=== PATIENT | female | born 1940 | race Caucasian/White ===

== ENCOUNTER 2019-11-10 09:33 | Outpatient (CLI) | payer MEDICARE, SELFPAY ==
--- NOTE | ~2019-11-10 | MR_ITS ---
EXAMINATION: MR lumbar spine wo/w con DATE: 11/10/2019 11:04 INDICATION: Bilateral lower extremity weakness. Urinary incontinence. TECHNIQUE: Magnetic resonance imaging (MRI) of the lumbar spine was performed without and with 10 mL MultiHance intravenous contrast. Sequences included sagittal T2-weighted FSE, sagittal T2-weighted FS FSE, sagittal T1-weighted FSE, and axial T2-weighted FSE. COMPARISON: CT abdomen and pelvis 06/10/2013 FINDINGS: There is 5 degrees dextrocurvature of thoracolumbar spine. There is 3 mm anterolisthesis of L3 on L4. Vertebral body heights are normal. There is moderately decreased disc height at L3-L4. The distal spinal cord signal intensity is normal. The conus medullaris is at L1. The following disc lev els are specifically discussed: L1-L2: The disc is mildly bulging. There is no facet joint osteoarthritis. There is mild bilateral ne ural foraminal stenosis. There is no central canal stenosis. L2-L3: The disc is bulging and has an annular fissure. There is mild bilateral facet joint osteoarthr itis. There is mild bilateral neural foraminal stenosis. There is mild central canal stenosis. L3-L4: The disc is bulging and has an annular fissure. There is severe right and moderate left facet joint osteoarthritis. There is hypertrophy of the ligamentum flavum. There is moderate right and mild left neural foraminal stenosis. There is mild central canal stenosis. L4-L5: The disc is bulging. There is severe bilateral facet joint osteoarthritis. There is hypertroph y of the ligamentum flavum. There is mild bilateral neural foraminal stenosis. There is mild central canal stenosis. L5-S1: The disc does not extend beyond the endplate margin. There is severe right and moderate left f acet joint osteoarthritis. There is mild bilateral neural foraminal stenosis. There is mild central c anal stenosis. IMPRESSION: 1. Moderate lumbar spondylosis. Reviewed, dictated and finalized at location A.
[2019-11-10 10:22] LABS: Estimated Glomerular Filt Rate > 60
== END 2019-11-10 09:34 | disposition home or self-care (01) ==
PROVIDERS: PCP Family Medicine; Visit Provider Nurse Practitioner Family
DX: R32 Unspecified urinary incontinence (principal); R53.1 Weakness; M47.816 Spondylosis without myelopathy or radiculopathy, lumbar region
CPT/HCPCS: 36415; 72158; A9577

== ENCOUNTER 2019-11-17 21:45 | Emergency (ER) | payer MEDICARE, SELFPAY ==
--- NOTE | ~2019-11-17 | CT_ITS ---
EXAMINATION: CT facial & cervical spine wo DATE: 11/17/2019 22:35 INDICATION: Facial and neck pain after fall TECHNIQUE: Computed tomography (CT) of the maxillofacial region and cervical spine was performed with out intravenous contrast. The dose-length product (DLP) was 161.72 mGy-cm. Automated exposure control and iterative reconstruction technique were employed. COMPARISON: None FINDINGS: MAXILLOFACIAL CT: No facial bone fracture is identified. The facial soft tissues are unremarkable. There is mild mucosa l thickening of the paranasal sinuses. Moderate degenerative changes noted in the temporomandibular j oints. CERVICAL SPINE CT: There is no fracture. There are 2 mm of anterolisthesis of C3 on C4 and 2 mm of retrolisthesis of C5 on C6. There is advanced loss of intervertebral disc space height at C4-5, C5-6, and C6-7. The verteb ral body heights are maintained. The odontoid is intact. There is severe multilevel facet and uncover tebral joint osteoarthritis. The prevertebral soft tissues are normal. IMPRESSION: 1. No facial bone fracture. 2. Severe cervical spondylosis without acute osseous abnormality. Reviewed, dictated and finalized at location A.
--- NOTE | ~2019-11-17 | CT_ITS ---
EXAMINATION: CT brain wo con INDICATION: Head injury COMPARISON: 01/06/2019 TECHNIQUE: Standard unenhanced head CT. The dose-length product (DLP) was 605.33 mGy-cm. The mA was a djusted according to patient size. Iterative reconstruction technique was employed. FINDINGS: There is no acute intraparenchymal hemorrhage. No evidence of mass lesion. No evidence of a cute infarction. There is moderate periventricular and subcortical hypodensity probably related to sm all vessel ischemic disease. There is moderate prominence of the sulci and ventricles related to cere bral atrophy. Intracranial calcified cerebral atherosclerosis is noted. There are no extra-axial oanh ections. There is no mass effect or midline shift. The orbits and soft tissues are unremarkable. The visualized sinuses and mastoid air cells are well aerated. IMPRESSION: 1. No acute intracranial abnormality. 2. Age related findings. Reviewed, dictated and finalized at location A.
[2019-11-17 22:17] VITALS: BP 147/58; PULSE 61; RESP 14; TEMP 36.7; O2SAT 98
--- NOTE | 2019-11-18 00:13 | ED.HEATRA ---
HPI - Head Injury General Chief complaint: Head Injury Stated complaint: Fall, nose/face injury Time Seen by Provider: 11/17/19 23:54 History of Present Illness HPI Narrative: Patient is 79-year-old female who presents ER for evaluation after a fall. Patient had fallen in her apartment at the correction, hit her button to be helped up, the caregiver came in to help her up and she appeared wobbly briefly. Her primary care doctor 1 to rule out a broken nose that she has had bruising and swelling to her nose since fall. She denies any loss of consciousness. She is oriented x2-3 which makes her history limited. She does have a caregiver here who is assisting her. Related Data Home Medications Medication Instructions Recorded Confirmed donepezil 5 mg tablet 5 mg PO ONCE 05/07/19 09/12/19 tuberculin PPD 0.1 ml INTRADERM ONCE 05/07/19 09/12/19 bupropion HCl 75 mg tablet 75 mg PO BID 09/12/19 09/12/19 memantine 5 mg tablet 5 mg PO QAM 09/12/19 09/12/19 Allergies Allergy/AdvReac Type Severity Reaction Status Date / Time sertraline Allergy Intermediate DIARRHEA Verified 05/07/19 14:14 Penicillins Allergy Unknown Unknown Verified 05/07/19 14:14 Review of Systems Review of Systems: All systems reviewed & are unremarkable except as noted in HPI and below Constitutional: Constitutional: Denies fever(s) and Denies weakness ENT: Denies nasal congestion and Denies sore throat Comments: nose pain Genitourinary: Genitourinary: Denies nocturia and Denies dysuria Neurologic: Denies syncope, Denies headache(s), Denies focal weakness and Denies numbness PMF Past Medical History Medical History (Updated 11/18/19 @ 00:17 by Gregory Sellers MD) Anxiety and depression History of tobacco abuse none for the last 4-5 years, 50 pack year history Memory deficit Family History Family History (Updated 12/11/17 @ 13:43 by DOCTOR UNKNOWN) Mother Hypertension Social History Social History (Reviewed 05/07/19 @ 14:02 by Cathi Longoria [facility]) Smoking status: Former smoker Second hand tobacco smoke exposure: No Smoking end date: 05/28/00 Alcohol intake: current Gender identity (if verbalized by the patient): Female Exam Narrative: Exam Narrative: GENERAL: Well-appearing, well-nourished, and in no acute distress. HEAD: Normocephalic, atraumatic. EYES: PERRL and EOMI. ENT: Mucous membranes moist. Contusion over the bridge of the nose with mild tenderness, no epistaxis. NECK: Supple. CHEST: Clear to auscultation. No respiratory distress. HEART: Regular rate and rhythm. No murmur heard. Normal peripheral pulses. EXTREMITIES: Normal range of motion. No edema. NEURO: Alert and oriented x3. Course Course Emergency Course: Patient and nursing admin informed of results. No other evidence of injury. Discharge home. Vital Signs Vital signs: Vital Signs Temperature 98.1 F 11/17/19 22:17 Pulse Rate 61 11/17/19 22:17 Respiratory Rate 14 11/17/19 22:17 Blood Pressure 147/58 H 11/17/19 22:17 Pulse Oximetry 98 11/17/19 22:17 Temperature 98.1 F 11/17/19 22:17 Pulse Rate 61 11/17/19 22:17 Respiratory Rate 14 11/17/19 22:17 Blood Pressure 147/58 H 11/17/19 22:17 Pulse Oximetry 98 11/17/19 22:17 Discharge Plan Discharge Clinical Impression: Contusion of nose Patient Disposition: Home, Self-Care Condition: Stable Instructions: Nasal Contusion (ED) Additional Instructions: Return to the ER if you have chest pain or shortness of breath, cannot keep down food or water, you lose consciousness, have additional concerns. Prescriptions: No Action Tubersol 5 tub. unit /0.1 mL solution 0.1 ml INTRADERM ONCE RF: 0 donepezil 5 mg tablet 5 mg PO ONCE RF: 0 memantine [Namenda] 5 mg tablet 5 mg PO QAM RF: 0 bupropion HCl 75 mg tablet 75 mg PO BID RF: 0 Follow-up/Referrals: Gildardo Kolb MD [Primary Care Provider] - 1 Week
[2019-11-18 00:57] VITALS: BP 160/64; PULSE 60; RESP 17; O2SAT 98
== END 2019-11-18 01:00 ==
PROVIDERS: Emergency Provider Emergency Medicine; PCP Family Medicine
DX: S00.33XA Contusion of nose, initial encounter (principal); F41.8 Other specified anxiety disorders; Z87.891 Personal history of nicotine dependence; W19.XXXA Unspecified fall, initial encounter
CPT/HCPCS: 70450; 70486; 72125; 99284

== ENCOUNTER 2020-06-26 09:03 | Emergency (ER) | payer MEDICARE, SELFPAY ==
--- NOTE | ~2020-06-26 | XR_ITS ---
EXAMINATION: XR wrist RT min 3V DATE: 06/26/2020 09:44 INDICATION: Right wrist fracture post fall one day prior TECHNIQUE: Posteroanterior, ulnar deviation, oblique, and lateral views of the right wrist were obtai cecilia. COMPARISON: none FINDINGS: Nondisplaced intra-articular fracture at the ulnar side of the distal radius. No other fractures iden tified. Polyarticular osteoarthritis, moderate severity at the first interphalangeal joint and mild a t the triscaphe, first carpometacarpal and multiple metacarpophalangeal joints. IMPRESSION: 1. Nondisplaced intra-articular fracture at the ulnar side of the distal right radius. Reviewed, dictated and finalized at location A. CASHIER
[2020-06-26 09:12] VITALS: BP 139/71; PULSE 88; RESP 18; TEMP 36; O2SAT 97
--- NOTE | 2020-06-26 10:08 | ED.UPPEXIN ---
HPI - Extremity Injury (Upper) General Chief Complaint: Extremity Injury, Upper Stated Complaint: Right Wrist Injury, Cast Request Time Seen by Provider: 06/26/20 09:09 Source: patient and family Mode of arrival: ambulatory Limitations: dementia History of Present Illness HPI narrative: Patient is a 80 year old female who presents with daughter for a cast placement on a broken wrist. Her daughter states patient accidentally fell on Sunday night. She landed on her right wrist. She states it is swollen but patient denies having any pain. An outpatient right wrist xray was performed yesterday and it shows that she has a wrist fracture. Patient denies pain. She denies hitting her head or LOC. Patient is here to get a cast. Related Data Home Medications Medication Instructions Recorded Confirmed donepezil 5 mg tablet 5 mg PO ONCE 05/07/19 05/18/20 tuberculin PPD 0.1 ml INTRADERM ONCE 05/07/19 05/18/20 memantine 5 mg tablet 5 mg PO QAM 09/12/19 05/18/20 Lactobacillus acidophilus 1 tablet PO DAILY 03/02/20 05/18/20 calcium polycarbophil 625 mg tablet 1,250 mg PO DAILY 03/02/20 05/18/20 ergocalciferol (vitamin D2) 1,250 1,250 mcg PO WEEKLY 03/02/20 05/18/20 mcg (50,000 unit) capsule fluticasone propionate 50 1 spray NASAL DAILY 03/02/20 05/18/20 mcg/actuation nasal spray,suspension multivitamin 1 tablet PO DAILY 03/02/20 05/18/20 Allergies Allergy/AdvReac Type Severity Reaction Status Date / Time sertraline Allergy Intermediate DIARRHEA Verified 06/26/20 09:20 Penicillins Allergy Unknown Unknown Verified 06/26/20 09:20 Review of Systems Review of Systems: All systems reviewed & are unremarkable except as noted in HPI and below PMFSH Past Medical History Medical History (Updated 06/26/20 @ 11:53 by Sonam Beal MD) Anxiety and depression History of tobacco abuse none for the last 4-5 years, 50 pack year history Memory deficit Family History Family History Mother Hypertension Social History Social History Smoking status: Former smoker Second hand tobacco smoke exposure: No Smoking end date: 05/28/00 Alcohol intake: current Gender identity (if verbalized by the patient): Female Exam Const: General: alert Orientation/consciousness: patient oriented x3 HENMT: Head: normocephalic and atraumatic Eyes: EOM: EOMs intact bilaterally Resp: Effort & Inspection: normal respiratory effort Skin: General skin exam: normal color Rashes: no rashes Neuro: General: patient oriented x3 and moves all extremities Extrem: Other: right wrist with mild swelling, FROM, palpable radial pulse, sensation intact. Psych: Mental Status: mental status grossly normal Affect: normal affect Course Reevaluation(s) Reevaluation #1: Patient has sugar tong in place now so she will be discharged. I discussed follow up with daughter. No further questions. Date: 06/26/20 Time: 11:51 Vital Signs Vital signs: Vital Signs Temperature 96.8 F L 06/26/20 09:12 Pulse Rate 88 06/26/20 09:12 Respiratory Rate 18 06/26/20 09:12 Blood Pressure 139/71 06/26/20 09:12 Pulse Oximetry 97 06/26/20 09:12 Temperature 96.8 F L 06/26/20 09:12 Pulse Rate 64 06/26/20 12:16 Respiratory Rate 20 06/26/20 12:16 Blood Pressure 150/59 H 06/26/20 12:16 Pulse Oximetry 97 06/26/20 12:16 MDM - Extremity Injury (Upper) Imaging Data Radiologist's impression: ITS Impressions Wrist X-Ray 06/26/20 09:45 IMPRESSION: 1. Nondisplaced intra-articular fracture at the ulnar side of the distal right radius. Discharge Plan Discharge Clinical Impression: Closed fracture of distal end of right radius Qualifiers: Encounter type: initial encounter Fracture morphology: unspecified fracture morphology Qualified Code(s): S52.501A - Unspecified fracture of the low
[2020-06-26 12:16] VITALS: BP 150/59; PULSE 64; RESP 20; O2SAT 97
== END 2020-06-26 12:20 ==
PROVIDERS: Emergency Provider General Practice; PCP Physician Assistant
DX: S52.571A Other intraarticular fracture of lower end of right radius, initial encounter for closed fracture (principal); Z87.891 Personal history of nicotine dependence; W19.XXXA Unspecified fall, initial encounter
CPT/HCPCS: 29125; 73110; 99284

== ENCOUNTER 2021-06-16 09:20 | Emergency (ER) | payer MEDICARE, SELFPAY ==
--- NOTE | ~2021-06-16 | CT_ITS ---
EXAMINATION: CT brain wo con EXAM DATE: 06/16/2021 10:03 INDICATION: Trauma. TECHNIQUE: Spiral CT of the head was performed without contrast. Axial, coronal and sagittal images were reviewed. The dose-length product (DLP) for this examination was 681.00 mGy-cm. The exposure w as tailored according to patient size, and iterative reconstruction (ASIR) was used as additional dos e reduction technique. Comparison is made to prior examination from 11/17/2019. FINDINGS: There is no acute intraparenchymal hemorrhage. No evidence of intraparenchymal brain mass lesion. No evidence of acute infarction. Please note that initial head CT has limited sensitivity f or small or acute infarctions. There is mild to moderate periventricular and subcortical hypodensity, nonspecific but probably related to small vessel ischemic disease. There is ventricular prominence out of proportion to sulci which is suspected most likely central atrophy rather than hydrocephalus. Normal pressure hydrocephalus cannot be excluded (clinical triad ataxia/gait disturbance, dementia, urinary incontinence). There is intracranial carotid arteriosclerosis. There are no extra-axial c ollections. There is no mass effect or midline shift. Patient has had bilateral ocular lens surgery . Soft tissue is unremarkable. The visualized sinuses and mastoid air cells are well aerated. IMPRESSION: 1. No acute intracranial findings. 2. Dilated ventricles, probably central atrophy. NPH not excludable. 3. Microangiopathy. Reviewed, dictated and finalized at location B. LADLE TENDER
[2021-06-16 09:22] VITALS: BP 177/90; PULSE 88; RESP 16; TEMP 36.8; O2SAT 100
--- NOTE | 2021-06-16 10:04 | ED.FALL ---
HPI - Fall General Chief Complaint: Fall Stated Complaint: fall Time Seen by Provider: 06/16/21 09:30 Source: patient, EMS and RN notes reviewed Mode of arrival: EMS Limitations: dementia History of Present Illness HPI Narrative: 81-year-old female presenting to the emergency room from a local fdc after having an unwitnessed fall from bed this morning. correction went to go check on the patient and found her lying on the floor. Patient initially reported left hip pain. Upon arrival to the scene by EMS patient was complaining of right hip pain. Upon arrival to the emergency room and patient denies any complaints at this time. Patient does have dementia and is a poor historian. Patient states that she walks daily without any issues. Patient does have contracted legs bilaterally and is nonambulatory per fdc. Related Data Home Medications Medication Instructions Recorded Confirmed donepezil 5 mg tablet 5 mg PO ONCE 05/07/19 07/02/20 memantine 5 mg tablet 5 mg PO QAM 09/12/19 07/02/20 Lactobacillus acidophilus 1 tablet PO DAILY 03/02/20 07/02/20 calcium polycarbophil 625 mg tablet 1,250 mg PO DAILY 03/02/20 07/02/20 ergocalciferol (vitamin D2) 1,250 1,250 mcg PO WEEKLY 03/02/20 07/02/20 mcg (50,000 unit) capsule fluticasone propionate 50 1 spray NASAL DAILY 03/02/20 07/02/20 mcg/actuation nasal spray,suspension multivitamin 1 tablet PO DAILY 03/02/20 07/02/20 Allergies Allergy/AdvReac Type Severity Reaction Status Date / Time sertraline Allergy Intermediate DIARRHEA Verified 07/01/20 10:35 Penicillins Allergy Unknown Unknown Verified 07/01/20 10:35 Review of Systems Review of Systems: Patient denies any complaints. Review of systems is difficult due to her dementia ROS unobtainable: Yes unobtainable due to mental status PMFSH Past Medical History Medical History (Updated 06/16/21 @ 10:30 by Bryson Horne MD) Anxiety and depression COPD (chronic obstructive pulmonary disease) Dementia Depression History of tobacco abuse none for the last 4-5 years, 50 pack year history Hypersomnia Memory deficit Severe sleep apnea Swelling of lymph node Family History Family History Mother Hypertension Social History Social History Smoking status: Former smoker Second hand tobacco smoke exposure: No Smoking end date: 05/28/00 Alcohol intake: current Gender identity (if verbalized by the patient): Female Exam Narrative: APPEARANCE: Well appearing, no pain, no distress, well-nourished. HEAD: normocephalic, atraumatic. EYES: PERRLA/EOMI, conjunctivae clear. NOSE: Normal no drainage EARS:TMS clear with good light reflex. THROAT: Pharynx clear, no exudate. NECK: Supple. No adenopathy, no masses. RESPIRATORY: Airway patent, respirations nonlabored. Clear to auscultation bilaterally, no rales, rhonchi, wheezing. CARDIOVASCULAR: Regular rate and rhythm without murmurs rubs or gallops. ABDOMINAL: Soft, nontender, nondistended, normal bowel sounds MUSCULOSKELETAL: Moves all extremities. Strength/ROM intact, No edema, No calf tenderness. Passive range of motion of the legs and palpation of the hips was normal. No evidence of trauma or ecchymosis to the lower extremities. NEURO: Alert. Cranial nerves II through XII intact. SKIN: Warm, dry. Normal Color Course Course Emergency Course: Head CT was ordered due to the unwitnessed ground-level fall. No significant evidence of trauma. Reevaluation(s) Reevaluation #1: Patient was completely reexamined a second time. Patient continues to deny any pain or complaints. Patient had no pain with range of motion of the hips or with palpation of the hips. Patient has no evidence of injury. Negative head CT and physical exam was discussed with the daughter. Daughter is comfortable with plan for discharge back to the care facility. Daallison
[2021-06-16 10:24] VITALS: RESP 18
[2021-06-16 11:28] VITALS: BP 163/82; PULSE 84; RESP 18; O2SAT 100
[2021-06-16 12:09] VITALS: BP 165/107; PULSE 97; RESP 17; O2SAT 98
--- NOTE | 2021-06-16 12:20 | PC.NURSE ---
pt noted to be soiled prior to leaving the Dept, pt taken to bathroom, clean, and new depend placed on the pt prior to leaving
--- NOTE | 2021-06-16 14:59 | PC.NURSE ---
ct scan report and dc papers, faxed to [facility] per director request
--- NOTE | 2021-06-16 17:17 | PC.NURSE ---
spoke to daughter Lian Hudson, made aware that we had attempted multiple times to fax dc papers to facility to no avail. stated that she would scan her copy of dc papers to the facility, thanked [facility] for their diligence in this matter [phone]
== END 2021-06-16 12:35 ==
PROVIDERS: Emergency Provider Emergency Medicine; PCP Family Medicine
DX: Z04.3 Encounter for examination and observation following other accident (principal); F03.90 Unspecified dementia, unspecified severity, without behavioral disturbance, psychotic disturbance, mood disturbance, and anxiety; J44.9 Chronic obstructive pulmonary disease, unspecified; G47.30 Sleep apnea, unspecified; Z87.891 Personal history of nicotine dependence; F41.9 Anxiety disorder, unspecified; F32.A Depression, unspecified; I73.9 Peripheral vascular disease, unspecified; W06.XXXA Fall from bed, initial encounter
CPT/HCPCS: 70450; 99284

== ENCOUNTER 2021-06-30 11:20 | Emergency (ER) | payer MEDICARE, SELFPAY ==
--- NOTE | ~2021-06-30 | CT_ITS ---
EXAMINATION: CT facial bones w con DATE: 06/30/2021 12:24 INDICATION: Cellulitis at the nose TECHNIQUE: Computed tomography (CT) of the facial bones and maxillofacial region was performed with 1 00 mL Omnipaque-350 intravenous contrast. Coronal reconstructions were obtained. Automated exposure c ontrol and iterative reconstruction technique were employed. The dose-length product was 285.32 mGy-c m. COMPARISON: 11/17/2019 FINDINGS: There is prominent soft tissue swelling along the anterior aspect of the nose. There is peripheral en hancement surrounding a low attenuation region consistent with either abscess or phlegmonous change w hich measures 2.0 cm proximal to distal, 1.2 cm left to right and 0.6 cm in thickness. There appears to be an overlying skin ulceration which contacts the low density region. The low attenuation region contacts the anterior inferior tip of the bilateral nasal bones however there is no evident interval osteolysis to suggest osteomyelitis when comparing with a prior CT dated 11/17/2019. Changes of bilateral intraocular lens replacement. Bilateral orbits are otherwise unremarkable. Mild mucoperiosteal thickening in the bilateral ethmoid and maxillary sinuses. There are few scattered den matthew caries and multiple dental restorations. Periapical lucency surrounding the medial root of the po sterior most remaining left maxillary molar. 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 Maxillofacial bones are otherwise unremarkable with no fractures. Severe cervical spondylosi s. Scattered atherosclerotic plaque without hemodynamically significant stenosis along both the intra and extracranial bilateral internal carotid arteries. Bilateral A1 and P1 cranial artery segments ar e patent. There is also a patent left posterior communicating cerebral artery. Moderate likely age-re lated atrophy within the visualized brain. IMPRESSION: 1. 2.0 x 1.2 x 0.6 cm low-attenuation either abscess or region of phlegmonous change underlying shall ow skin ulceration at the midline of the nose. Reviewed, dictated and finalized at location [facility]. OR FINANCE MANAGER IMPRESSION: 1. 2.0 x 1.2 x 0.6 cm low-attenuation either abscess or region of phlegmonous c hange underlying shallow skin ulceration at the midline of the nose.
[2021-06-30 11:22] VITALS: BP 139/75; PULSE 91; RESP 16; TEMP 36.6; O2SAT 96
--- NOTE | 2021-06-30 11:27 | ECG_ITS ---
Measurements Intervals [place] Rate: 77 P: 65 DC: 195 QRS: -51 QRSD: 98 T: 51 QT: 373 QTc: 425 Interpretive Statements SINUS RHYTHM LEFT ANTERIOR FASCICULAR BLOCK BASELINE ARTIFACT- I, II, III, AVR, AVL, AVF, V1 ABNORMAL ECG Electronically Signed On 06-30-2021 11:56:27 DIRECTOR OF INSTITUTIONAL GIVING by Srini Poole D.O.
--- NOTE | 2021-06-30 11:39 | ED.GENADULT ---
HPI - General Adult General Chief complaint: Altered Mental Status Stated complaint: WOUND TO NOSE Time Seen by Provider: 06/30/21 11:35 Source: patient History of Present Illness HPI narrative: Patient presents for evaluation of the nose. Reports she has had a wound for the past couple weeks has had a trial of antibiotics however the swelling and redness is getting progressively worse so she referred to the ER for evaluation. On EMS arrival care team reported to EMS they thought maybe she was altered as well. Patient has no complaints of pain she is alert. Related Data Home Medications Medication Instructions Recorded Confirmed donepezil 5 mg tablet 5 mg PO ONCE 05/07/19 07/02/20 memantine 5 mg tablet 5 mg PO QAM 09/12/19 07/02/20 Lactobacillus acidophilus 1 tablet PO DAILY 03/02/20 07/02/20 calcium polycarbophil 625 mg tablet 1,250 mg PO DAILY 03/02/20 07/02/20 ergocalciferol (vitamin D2) 1,250 1,250 mcg PO WEEKLY 03/02/20 07/02/20 mcg (50,000 unit) capsule fluticasone propionate 50 1 spray NASAL DAILY 03/02/20 07/02/20 mcg/actuation nasal spray,suspension multivit with min-folic acid 1 tablet PO DAILY 06/30/21 06/30/21 [Adult Multivitamin Extra VitD3] Allergies Allergy/AdvReac Type Severity Reaction Status Date / Time sertraline Allergy Intermediate DIARRHEA Verified 07/01/20 10:35 Penicillins Allergy Unknown Unknown Verified 07/01/20 10:35 Review of Systems Review of Systems: ROS unobtainable: Yes unobtainable due to mental status (Patient has baseline dementia and resides in the memory care unit) [facility] Past Medical History Medical History Anxiety and depression COPD (chronic obstructive pulmonary disease) Dementia Depression History of tobacco abuse none for the last 4-5 years, 50 pack year history Hypersomnia Memory deficit Severe sleep apnea Swelling of lymph node Family History Family History Mother Hypertension Social History Social History Smoking status: Former smoker Second hand tobacco smoke exposure: No Smoking end date: 05/28/00 Alcohol intake: current Gender identity (if verbalized by the patient): Female Exam Narrative: GENERAL: Well-appearing, well-nourished, and in no acute distress. HEAD: Normocephalic, atraumatic. EYES: PERRLA and EOMI. ENT: Nares clear, no rhinorrhea or epistaxis. Mucous membranes moist. Superficial abrasion noted to the bridge of the nose no focal fluctuance no purulent drainage NECK: Supple. No masses. No JVD EXTREMITIES: Normal range of motion. No edema. SKIN: Warm, dry, no rash. NEURO: No focal deficits. Alert a PSYCH: Normal mood and affect. Course Reevaluation(s) Reevaluation #1: Patient's mental status appears at baseline per record review. Imaging showed area of low-attenuation needle aspiration of the any question was attempted there is no purulent material expressed well attempt additional antibiotics to assist with soft tissue infection Date: 06/30/21 Time: 12:52 Vital Signs Vital signs: Vital Signs Temperature 36.6 C 06/30/21 11:22 Pulse Rate 91 06/30/21 11:22 Respiratory Rate 16 06/30/21 11:22 Blood Pressure 139/75 06/30/21 11:22 Pulse Oximetry 96 06/30/21 11:22 Temperature 36.6 C 06/30/21 11:22 Pulse Rate 89 06/30/21 13:10 Respiratory Rate 18 06/30/21 13:10 Blood Pressure 129/59 L 06/30/21 13:10 Pulse Oximetry 94 06/30/21 13:10 Medical Decision Making [facility] Narrative Medical decision making narrative: H&P as above, vss, pt looks clinically well, exam with large area of erythema and edema on the face, labs with elevated white count otherwise clinically unremarkable, img with phlegmonous changes, additional labs/img considered, symptomatic relief available as needed, on reevaluation pt continues to looks clinically well.
[2021-06-30 11:52] LABS: Basophils Percent Auto 0.2 % (0.2-1.2); Eosinophils Percent Auto 0.2 % (0-4.4); Hematocrit 35.9 % (37.0-47.0); Hemoglobin 11.6 g/dL (12.0-15.0); Immature Granulocyte Absolute 0.05 K/mm3 (0.00-0.031); Immature Granulocyte Percent A 0.4 % (0-0.5); Lymphocytes Percent Auto 8.4 % (18.3-44.2); Mean Corpuscular HGB Conc 32.3 g/dl (32-36); Mean Corpuscular Hemoglobin 31.1 pg (26-34); Mean Corpuscular Volume 96.2 fl (80-100); Mean Platelet Volume 9.5 fl (7.4-10.4); Monocytes Absolute Auto 1.4 K/mm3 (0.1-0.6); Monocytes Percent Auto 9.9 % (2.6-8.5); Neutrophils Absolute Auto 11.5 K/mm3 (1.3-6.7); Neutrophils Percent Auto 80.9 % (45.5-73.1); Platelet Count Result 330 k/mm3 (150-375); Red Blood Count 3.73 M/mm3 (4.2-5.4); Red Cell Distribution Width 13.6 % (11.5-14.5); White Blood Count 14.2 K/mm3 (4.5-10.0)
[2021-06-30 11:57] LABS: Prothrombin Time 13.2 Seconds (11.1-14.7)
[2021-06-30 12:02] LABS: Alanine Aminotransferase 15 U/L (4-35); Albumin Level 3.7 g/dL (3.5-5.1); Alkaline Phosphatase 86 U/L (38-126); Anion Gap 1 mmol/L (8-16); Aspartate Amino Transferase 26 U/L (14-36); Bilirubin,Total 0.6 mg/dL (0.2-1.3); Blood Urea Nitrogen 19 mg/dL (7-17); Calcium 9.3 mg/dL (8.4-10.2); Carbon Dioxide 29 mmol/L (22-30); Chloride 107 mmol/L (98-107); Estimated CRCL calculation 67 ml/min; Estimated Glomerular Filt Rate > 60; Glucose 121 mg/dL (65-110); Potassium 4.2 mmol/L (3.4-5.0); Sodium 137 mmol/L (137-145)
[2021-06-30 12:55] LABS: Add Urine Microscopic? YES; Appearance Urine Clear (Clear); Bacteria Urine Trace /hpf; Bilirubin Urine Negative (Negative); Blood Urine Negative (Negative); Color Urine Yellow (Yellow); Glucose Urine UA Negative (Negative); Ketones Urine Negative (Negative); Leukocyte Esterase Ur Negative LEU/UL (Negative); Mucus Urine Few /lpf; Nitrate Urine Negative (Negative); Protein Urine Negative (Negative); Specific Grav Ur 1.018 (1.001-1.035); Squamous Epithelial Cell Urine Moderate /hpf (Few); WBC Urine 0-3 /hpf
--- NOTE | 2021-06-30 12:59 | PC.NURSE ---
This nurse attempted to call [facility] in [place] and was told there was no pt under this name. Will call back with more information.
--- NOTE | 2021-06-30 13:05 | PC.NURSE ---
This nurse gave an update to the pt daughter, Lian Hudson, at [phone].
[2021-06-30 13:10] VITALS: BP 129/59; PULSE 89; RESP 18; O2SAT 94
== END 2021-06-30 14:35 ==
PROVIDERS: Emergency Provider Emergency Medicine; PCP Nurse Practitioner Family
DX: L03.211 Cellulitis of face (principal); J44.9 Chronic obstructive pulmonary disease, unspecified; F03.90 Unspecified dementia, unspecified severity, without behavioral disturbance, psychotic disturbance, mood disturbance, and anxiety; G47.30 Sleep apnea, unspecified; G47.10 Hypersomnia, unspecified; F41.9 Anxiety disorder, unspecified; F32.A Depression, unspecified
CPT/HCPCS: 36415; 51701; 70487; 80053; 81001; 85025; 85610; 85730; 93005; 99284; Q9967

== ENCOUNTER 2021-07-08 08:36 | Outpatient (CLI) | payer MEDICARE, SELFPAY ==
--- NOTE | ~2021-07-08 | XR_ITS ---
EXAMINATION: XR barium swallow modified DATE: 07/08/2021 09:32 INDICATION: Dysphagia. TECHNIQUE: The patient was given barium-containing material of multiple consistencies to swallow by lemuel sanders speech pathologist while I performed fluoroscopy. Dose-area product was 1.92 Gy-cm2. 2.9 minutes fluoroscopy time FINDINGS: Oral Stage: Premature spillage Pharyngeal Phase: Reduced laryngeal elevation, reduced tongue base retraction, vallecular residue Laryngeal penetration, no aspiration Cervical/Esophageal Stage: Within functional limits IMPRESSION: Modified esophagram findings as above. Please refer to the speech [facility] report [facility] Reviewed, dictated and finalized at [facility]. Reviewed, dictated and finalized at location [facility]. RT PRE COOKER IMPRESSION: Modified esophagram findings as above. Please refer to the speech t herapy report for specific recommendations.
--- NOTE | 2021-07-08 16:13 | STOPEVAL ---
MODIFIED BARIUM SWALLOW EVALUATION: Thank you for referring Kristen Cross to [facility].? Attending Provider: Jovita Ramsey, [facility]- Fax: Modified Barium Swallow Evaluation Recent Swallowing History Reports Dysphagia she did but it's gotten better Duration of Dysphagia 1-2 years Other Related History severe dementia Other Factors Impacting Dysphagia Neurological Impairment History of Pneumonia No: per caregiver Reported Difficult Consistencies Unable to Identify Intake Method Prior to Swallow Oral Evaluation Diet Prior to Swallow Evaluation Minced and Moist, Level 5 Dentition Comments she can chew soft bite size pieces per caregiver but she' s on ground meat Consistency Thin Uncontrolled 2 Method of Presentation Straw Oral Preparatory Symptoms Within Functional Limits Oral Phase Symptoms Within Functional Limits Pharyngeal Phase Symptoms Reduced Lingual Pressure, Residue in Valleculae Severity of Vallecular Residue Moderate - 25-50 % Epiglottic Ligament Covered Severity of Pyriform Sinus Residue None - 0% No Residue 8 Point Laryngeal Penetration-Aspiration Material Does Not Enter Airway Scale Pharyngeal Phase Comments vallecular residue is reduced to a trace level with repeat dry swallows which she performed independently and/or with verbal cues Cervical/Esophageal Symptoms Within Functional Limits Thin Uncontrolled 1 Method of Presentation Cup Oral Preparatory Symptoms Within Functional Limits Oral Phase Symptoms Within Functional Limits Pharyngeal Phase Symptoms Reduced Lingual Pressure, Residue in Valleculae Severity of Vallecular Residue Mild - 5-25 % Epiglottic Ligament Visable Severity of Pyriform Sinus Residue None - 0% No Residue 8 Point Laryngeal Penetration-Aspiration Material Does Not Enter Airway Scale Pharyngeal Phase Comments vallecular residue is reduced to a trace level with repeat dry swallows which she performed independently and/or with verbal cues Cervical/Esophageal Symptoms Within Functional Limits Solid Consistency Method of Presentation Spoon Oral Preparatory Symptoms Within Functional Limits Oral Phase Symptoms Within Functional Limits Pharyngeal Phase Symptoms Reduced Lingual Pressure, Residue in Valleculae Severity of Vallecular Residue Moderate - 25-50 % Epiglottic
== END 2021-07-08 08:37 | disposition home or self-care (01) ==
PROVIDERS: Visit Provider Nurse Practitioner Family
DX: R13.12 Dysphagia, oropharyngeal phase (principal)
CPT/HCPCS: 92611